=== PATIENT | male | born 1965 | race African-American/Black ===

== ENCOUNTER 2017-09-15 07:48 | Day surgery (SDC) | payer BC ==
[2017-09-11 10:14] LABS: PLATELET COUNT 206 K/uL (142-355)
[2017-09-11 10:48] LABS: POTASSIUM 3.9 mmol/L (3.6-5.2); SODIUM 138 mmol/L (136-145)
== END 2017-09-15 10:39 | disposition home or self-care (01) ==
LOC: OR 07:48
PROVIDERS: Student in an Organized Health Care Education/Training Program
PROC: 0DB48ZZ Excision of Esophagogastric Junction, Via Natural or Artificial Opening Endoscopic (ICD-10-PCS; principal; 2017-09-15)
PROC: 0DB68ZZ Excision of Stomach, Via Natural or Artificial Opening Endoscopic (ICD-10-PCS; 2017-09-15)
DX: K21.0 Gastro-esophageal reflux disease with esophagitis (principal); K29.50 Unspecified chronic gastritis without bleeding; R10.13 Epigastric pain; R13.19 Other dysphagia
CPT/HCPCS: 36415; 80053; 85027; J2001; J2250; J2704; J3010

== ENCOUNTER 2017-09-22 07:50 | Day surgery (SDC) | payer BC | END 2017-09-22 10:25 | disposition home or self-care (01) | LOC: OR 07:50 | PROC: 0DJD8ZZ Inspection of Lower Intestinal Tract, Via Natural or Artificial Opening Endoscopic (ICD-10-PCS; principal; 2017-09-22) | DX: K57.30 Diverticulosis of large intestine without perforation or abscess without bleeding (principal); K64.8 Other hemorrhoids; Z12.11 Encounter for screening for malignant neoplasm of colon; Z80.0 Family history of malignant neoplasm of digestive organs | CPT/HCPCS: J2001; J2250; J2704; J3010 ==

== ENCOUNTER 2020-03-26 15:28 | Outpatient (CLI) | payer OTHER | END 2020-03-26 22:07 | disposition home or self-care (01) | LOC: US 15:28 | DX: N50.811 Right testicular pain (principal); R10.30 Lower abdominal pain, unspecified ==